=== PATIENT | male | born 1970 | race Two or more races ===

== ENCOUNTER 2020-10-28 15:20 | Emergency (ER) | payer OTHER ==
[~2020-10-28] VITALS: Ht 188 cm; Wt 117.9 kg
[2020-10-28] MEDS ORDERED: HYDROcodone-ACET 10/325MG TAB PO ONE (16:15)
[2020-10-28 17:20] VITALS: BP 133/92
== END 2020-10-28 17:23 | disposition home or self-care (01) ==
LOC: ER 15:20
DX: S42.491D Other displaced fracture of lower end of right humerus, subsequent encounter for fracture with routine healing (principal); X58.XXXD Exposure to other specified factors, subsequent encounter
CPT/HCPCS: 29105; 73030; 73060